=== PATIENT | female | born 1955 | race Caucasian/White ===

== ENCOUNTER → 2018-06-21 | Outpatient (CLI) | payer MEDICARE, BC ==
[~2018-06-21] MED LIST: ARM250PT PO; ARMO250T5 PO; BECR40 INH; CYC10 PO; DOCU100T19 PO; DUONEB INH; FEXO180T74 PO; FLU20 PO; LOR10 PO; LOR75 PO; METF-1 PO; METHO500 PO; MIRT-1 PO; MOMR; MORS60 PO; MOX400 PO; OMEP-153 PO; OXY10 PO; OXYGEN INH; PER PO; PRAM0.1225 PO; PRE20 PO; PREG100C45 PO; RANI-320 PO; VARE1TAB18 PO
--- NOTE | 2018-06-21 15:32 | RADIOLOGY IMAGING REPORT ---
FACILITY: [facility] [place] PATIENT NAME: Deepa Grayson : 1955 MR: [id number] V: [id number] EXAM DATE: ORDERING PHYSICIAN: EDDIE SIM TECHNOLOGIST: [place] [facility] [place]: Deepa Grayson : 1955 Visit/Account:[id number] Date of Sevice: 06/21/2018 EXAMINATION: L SPINE W/O CONTRAST INDICATION: Low back pain COMPARISON: None available TECHNIQUE: Multiplane MR imaging was performed through the lumbar spine without contrast. FINDINGS: Vertebral bodies and posterior elements: Normal Conus position/signal: Normal Marrow signal: Minimal degenerative edema surrounds the L3-4 disc space. Extraspinal structures including psoas muscles/paraspinal soft tissues: Normal. Other: Multilevel foraminal benign perineural cysts largest in the sacral region. L1-2: Linear high signal within the disc space on STIR acquisition is favored to be degenerative. No disc protrusion or canal narrowing. Normal foramen. L2-3: Minimal disc bulge, no canal narrowing, bilateral foraminal perineural cysts, otherwise unremar kable. L3-4: Bilateral foraminal perineural cysts, otherwise unremarkable. L4-5: Small disc protrusion, slight bilateral lateral recess narrowing, moderate left foraminal narro wing and mild to moderate right foraminal narrowing. Linear high signal within the disc space is favo red to be degenerative. L5-S1: Left laminectomy defect. No disc protrusion or canal narrowing. Mild left and mild to moderate right foraminal narrowing. IMPRESSION: 1. L4-5 and L5-S1 foraminal narrowing, see comments above. 2. Slight bilateral L4-5 lateral recess narrowing secondary to a small disc protrusion. 3. Otherwise unremarkable lumbar spine MRI. Report Dictated By: Nehemias Nelson MD at 06/21/2018 3:22 PM Report E-Signed By: Nehemias Nelson MD at 06/21/2018 3:28 PM WSN:[id number]
== END ==
LOC: MRI 06-14 03:14
PROVIDERS: ATTEND Clinical Nurse Specialist Family Health
DX: M54.16 Radiculopathy, lumbar region (principal); G96.19 Other disorders of meninges, not elsewhere classified
CPT/HCPCS: 72148

== ENCOUNTER → 2018-11-03 | Outpatient (CLI) | payer MEDICARE, BC ==
--- NOTE | 2018-11-03 15:46 | RADIOLOGY IMAGING REPORT ---
FACILITY: [facility] - [place] PATIENT NAME: Deepa Grayson : 1955 MR: [id number] V: [id number] EXAM DATE: ORDERING PHYSICIAN: EDDIE SIM TECHNOLOGIST: Location: [facility] Patient: Deepa Grayson : 1955 Visit/Account:[id number] Date of Sevice: 11/03/2018 HIP RIGHT Indication: Hip pain. Comparison: 12/19/2009 Findings: Frontal view of the pelvis and a frog-leg lateral view are obtained of the right hip. No acute fracture is identified. There is persistent, mild widening of the pubic symphysis which is u nchanged from 2009. 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 This is also similar to the 2010 exam. Since the 2009 exam, patient has develo ped moderate severity osteoarthritis at the right hip. Degenerative changes involve the low lumbar sp ine. IMPRESSION: 1. New, moderate severity changes of right hip joint osteoarthritis. 2. Unchanged appearance of the pubic symphysis and the left sacroiliac joint. This may be sequela of old trauma and is stable from 2009. Report Dictated By: Matthieu Yeung at 11/03/2018 3:37 PM Report E-Signed By: Matthieu Yeung at 11/03/2018 3:42 PM WSN:[id number]
== END ==
LOC: RAD 14:25
PROVIDERS: ATTEND Clinical Nurse Specialist Family Health
DX: M70.61 Trochanteric bursitis, right hip (principal); M16.11 Unilateral primary osteoarthritis, right hip